=== PATIENT | female | born 1975 | race Caucasian/White ===

== ENCOUNTER 2021-06-07 16:01 | Emergency (ER) | payer MEDICAID, SELFPAY ==
[2021-06-07 16:01] VITALS: BP 161/93; PULSE 108; RESP 24; TEMP 36.3; O2SAT 98; BMI 49.8
[2021-06-07 18:15] VITALS: BP 143/72; PULSE 90; RESP 17; O2SAT 97
--- NOTE | 2021-06-07 18:39 | CT_ITS ---
STUDY: CTA CHEST REASON FOR EXAM: Female, 45 years old. dyspnea RADIATION DOSAGE (If Supplied By Facility): CTDIvol = ( 17.42 ) mGy, DLP = ( 531.84 ) mGycm TECHNIQUE: The examination was performed with the intravenous administration of IV 100mL Isovue-370. Post-processing of the angiographic images was performed, with multiplanar reformation and 3D reconstruction. Individualized dose optimization techniques were used for this CT. COMPARISON: None. FINDINGS: Heart size and pericardium are unremarkable. The aorta is normal in caliber. No aneurysm or dissection. There is no mediastinal mass or adenopathy. There is no hilar or axillary adenopathy. There is no evidence of pulmonary embolus. There is no pleural effusion. Mild diffuse groundglass opacities with a predominantly peripheral distribution. Visualized abdomen is unremarkable. There is no osseous abnormality. CT/CTA Chest W/WO Contrast IMPRESSION: 1. No pulmonary embolism or arterial dissection. 2. Multilobar groundglass opacity suspicious for pneumonia, particularly Covid-19 pneumonia. Electronically Signed: Latasha Araya MD at 19:59 EDT Tel , Service support ,
--- NOTE | 2021-06-07 18:39 | EKG12_ITS ---
Test Reason : DYSRHYTHMIA Blood Pressure : / mmHG Vent. Rate : 078 BPM Atrial Rate : 078 BPM P-R Int : 160 ms QRS Dur : 080 ms QT Int : 354 ms P-R-T Axes : 042 027 044 degrees QTc Int : 403 ms Normal sinus rhythm Normal ECG Confirmed by JOSE RIZZO, ANNY ([id number]), editorial cartoonist CELIA VACA ([id number]) on 06/08/2021 1:50:03 PM Referred By: LESLI Confirmed By:ANNY GARCIA MD
--- NOTE | 2021-06-07 18:40 | EDS_ITS ---
HPI History of Present Illness Chief Complaint: Shortness of Breath Narrative Narrative: 45-year-old female with history of hypertension, diabetes, hyperlipidemia, status post Covid about 4 weeks. She is presenting with intermittent chest burning and epigastric burning. She also admits to shortness of breath with extreme exertion but this is intermittent. She has shortness of breath when she bends over. Patient no longer has any fevers, chills, myalgias. She sent to the ER by her primary care to rule out PE. She has no history of PE. She denies cardiac history but admits to family history of cardiac disease. [facility] Medical History Asthma CPAP (continuous positive airway pressure) dependence Depression Diabetes GERD (gastroesophageal reflux disease) Hypertension On home oxygen therapy Sleep apnea Home Medications albuterol sulfate 2 puff INHALATION Q4H PRN 06/07/21 [History Last Taken Unknown] aspirin 81 mg PO DAILY 06/07/21 [History Last Taken Unknown] compressor, for nebulizer [Pulmo-Aide Compressor] 06/07/21 [History Last Taken Unknown] hydrochlorothiazide 12.5 mg PO DAILY 06/07/21 [History Last Taken Unknown] ipratropium-albuterol 3 ml INHALATION Q4H PRN 06/07/21 [History Last Taken Unknown] lansoprazole 60 mg PO DAILY 06/07/21 [History Last Taken Unknown] lisinopril 40 mg PO DAILY 06/07/21 [History Last Taken Unknown] loratadine [Claritin] 10 mg PO DAILY 06/07/21 [History Last Taken Unknown] norethindrone acetate 15 mg PO DAILY 06/07/21 [History Last Taken Unknown] sertraline 50 mg PO DAILY 06/07/21 [History Last Taken Unknown] triamcinolone acetonide 1 applic TOPICAL DAILY 06/07/21 [History Last Taken Unknown] Allergy/AdvReac Type Severity Reaction Status Date / Time morphine Allergy Other Verified 06/07/21 18:07 Surgical History History of cholecystectomy Social History Smoking Status: Never smoker ROS ROS ED Constitutional Constitutional ED: Denies chills or fever(s) Eyes Eyes: Denies blurry vision or diplopia ENT ENT ED: Denies rhinorrhea or sore throat Cardiovascular Cardiovascular: Reports chest pain and racing heartbeat Respiratory/Chest Respiratory/Chest: Reports cough, dyspnea and dyspnea on exertion Gastrointestinal Gastrointestinal: Reports abdominal pain; Denies nausea or vomiting Genitourinary Genitourinary ED: Denies dysuria or hematuria Musculoskeletal Musculoskeletal: Denies arthralgias or myalgias Integumentary Denies Abrasions or rash Neurologic Neurologic: Denies headache(s) or paresthesias Psychiatric Psychiatric: Denies anxiety or depression EXAM Physical Exam Const Vital Signs: 06/07/21 16:01 06/07/21 18:15 06/07/21 18:48 Temperature 97.4 F L Temperature Source Temporal Pulse Rate 108 H 90 Respiratory Rate 24 H 17 Respiratory Effort Normal Non-Labored Respiratory Depth Normal Respiratory Pattern Normal Blood Pressure 161/93 H 143/72 H Blood Pressure Mean 115 95 Pulse Ox 98 97 98 Oxygen Delivery Method Room Air Room Air Room Air 06/07/21 19:52 06/07/21 20:56 Temperature 97.7 F L Temperature Source Temporal Pulse Rate 91 81 Respiratory Rate 17 18 Respiratory Effort Respiratory Depth Respiratory Pattern Blood Pressure 127/58 H 122/61 H Blood Pressure Mean 81 Pulse Ox 96 98 Oxygen Delivery Method Room Air Positive well nourished General Appearance ED: NAD; Negative for pallor HEENT Reports moist mucous membranes atraumatic Eyes PERRL and EOMs intact bilaterally Resp normal respiratory effort and clear to auscultation bilaterally Cardio regular rate and regular rhythm GI non-tender Palpation: soft Neuro oriented x3 Sensorium / Orientation: alert and oriented to person Psych mental status grossly normal Skin General Skin Exam: Negative for jaundice or pallor Rashes: no rashes MDM MDM MDM Narrative Medical decision making narrative: Patient presenting with continued shortness of breath after having COVID-19 pneumonitis. She states that she is intermittently short of breath. She describes a burning chest pain. CBC and BMP are unremarkable. Troponin is 5. Chest x-ray shows no acute cardiopulmonary process on my interpretation and the radiologist does agree. EKG shows a normal sinus rhythm at 78 bpm without sign of ischemic changes interpreted by myself. Patient had CTA of the chest due to concern for PE status post COVID-19. This does show multilobar groundglass opacities suspicious for COVID-19. There are no pulmonary emboli and there is no dissection present. Patient counseled on findings and I feel she stable to be discharged home as she is already recovered from COVID-19 pneumonitis. Impression: Lcaudio #1 history of COVID-19 pneumonitis 2. Shortness of breath 3. Atypical chest pain Lab Data Labs: Laboratory Results - last 24 hr 06/07/21 06/07/21 18:00 18:00 WBC 9.8 RBC 4.77 Hgb 13.7 Hct 42.5 MCV 89.1 MCH 28.7 MCHC 32.2 RDW Std Deviation 46.0 H RDW Coeff of Zac 14.1 Plt Count 439 MPV 9.8 Immature Gran % (Auto) 2.800 H Neut % (Auto) 63.9 Lymph % (Auto) 20.7 Russell % (Auto) 9.3 Eos % (Auto) 2.4 Baso % (Auto) 0.9 Absolute Neuts (auto) 6.2 Absolute Lymphs (auto) 2.02 Nucleated RBC % 0 Sodium 138 Potassium 4.0 Chloride 108 H Carbon Dioxide 26.0 Anion Gap 4 L BUN 10 Creatinine 0.64 Estim Creat Clear Calc 89.89 Est GFR (MDRD) Af Amer 127 Est GFR (MDRD) Non-Af 105 BUN/Creatinine Ratio 15.6 Glucose 137 H Calcium 9.5 Troponin I High Sens 5 Radiography Diagnostic Testing: Radiology Impression Chest CTA 06/07/21 18:39 IMPRESSION: 1. No pulmonary embolism or arterial dissection. 2. Multilobar groundglass opacity suspicious for pneumonia, particularly Covid-19 pneumonia. Electronically Signed: Latasha Araya MD at 19:59 EDT Tel , Service support , Chest X-Ray 06/07/21 18:42 IMPRESSION: Normal x-ray examination of the chest. Electronically Signed: Latasha Araya MD at 19:24 EDT Tel , Service support , Discharge Plan Triage Chief Complaint: Shortness of Breath ED Provider: Gaston Stanford Dx/Rx/DC Orders Instructions: ED Dyspnea Prescriptions: No Action albuterol sulfate 90 mcg/actuation HFA aerosol inhaler 2 puff INHALATION Q4H PRN (Reason: wheez) RF: 0 hydrochlorothiazide 12.5 mg tablet 12.5 mg PO DAILY RF: 0 ipratropium-albuterol 0.5 mg-3 mg(2.5 mg base)/3 mL solution for nebulization 3 ml inhalation Q4H PRN (Reason: Wheezing) RF: 0 triamcinolone acetonide 0.1 % cream 1 applic TOPICAL DAILY RF: 0 lansoprazole 30 mg capsule,delayed release(DR/EC) 60 mg PO DAILY RF: 0 norethindrone acetate 5 mg tablet 15 mg PO DAILY RF: 0 lisinopril 40 mg tablet 40 mg PO DAILY RF: 0 sertraline 50 mg tablet 50 mg PO DAILY RF: 0 (DME) Pulmo-Aide Compressor Device MISCELLANEOUS RF: 0 aspirin 81 mg Capsule 81 mg PO DAILY RF: 0 loratadine [Claritin] 10 mg Tablet 10 mg PO DAILY RF: 0 Primary Care Provider: Reilly Bales Referrals: Reilly Bales MD [Primary Care Provider] - Disposition Disposition: Home, Self Care Discharge Date/Time: 06/07/21 20:56
--- NOTE | 2021-06-07 18:42 | RAD_ITS ---
STUDY: X-RAY CHEST REASON FOR EXAM: Female, 45 years old. chest pain TECHNIQUE: Single AP portable view of the chest. COMPARISON: None. FINDINGS: The lungs are clear and expanded. There is no demonstrated pleural abnormality. Normal size heart. Normal mediastinum and raheem. Normal visualized pulmonary arteries. Normal visualized aortic arch and descending thoracic aorta. Normal visualized thoracic spine. Normal visualized ribs, clavicles, and shoulders. There is no demonstrated abnormality of the visualized soft tissue structures of the upper abdomen. RAD/Chest 1 View (Portable) IMPRESSION: Normal x-ray examination of the chest. Electronically Signed: Latasha Araya MD at 19:24 EDT Tel , Service support ,
[2021-06-07 18:48] VITALS: O2SAT 98
[2021-06-07 18:51] LABS: Absolute Lymphocyte Count 2.02 X10^3/uL (0.83-4.51); Absolute Neutrophil Count 6.2 X10^3/uL (2.0-7.7); Basophil# 0.09 X10^3/uL; Basophil% 0.9 % (0-1); Eosinophil# 0.23 X10^3/uL; Eosinophils% 2.4 % (0-5); Hematocrit 42.5 % (37-47); Hemoglobin 13.7 g/dL (12.0-15.0); Lymphocyte # 2.02 X10^3/ul (0.83-4.51); Lymphocyte % 20.7 % (19-41); Mean Corp Hgb Conc 32.2 g/dL (32-36); Mean Corpuscular Hgb 28.7 pg (27.0-32.0); Mean Corpuscular Volume 89.1 fL (81-99); Mean Platelet Vol. 9.8 fl (6.2-12.0); Monocyte# 0.91 X10^3/uL; Monocyte% 9.3 % (0-10); NRBC Flagged by Analyzer 0 % (0-5); Neutrophil # 6.24 X10^3/uL (2.7-7.7); Neutrophil % 63.9 % (47-70); Platelet Count 439 K/mm3 (150-450); RBC Distribution Width CV 14.1 % (11.6-14.6); Red Blood Count 4.77 M/mm3 (4.2-5.4); White Blood Count 9.8 K/mm3 (4.4-11.0)
[2021-06-07 19:03] LABS: Anion Gap 4 (5-15); BUN 10 mg/dL (7-18); BUN/Creat Ratio 15.6 RATIO (10-20); Calcium,Total 9.5 mg/dL (8.5-10.1); Chloride 108 mmol/L (98-107); Creatinine, Serum 0.64 mg/dL (0.55-1.02); EST Glomerular Filtration Rate 105 mL/min (>60); Est Glom Filt Rate - Afr Amer 127 mL/min (>60); Estimated Creatinine Clearance 89.89 ml/min; Glucose 137 mg/dL (74-106); Sodium Level 138 mmol/L (136-145); Troponin-I HS 5 pg/mL (3.0-54.0)
[2021-06-07 19:52] VITALS: BP 127/58; PULSE 91; RESP 17; TEMP 36.5; O2SAT 96
[2021-06-07 20:56] VITALS: BP 122/61; PULSE 81; RESP 18; O2SAT 98
== END 2021-06-07 20:56 | disposition home or self-care (01) ==
PROVIDERS: Emergency Provider Student in an Organized Health Care Education/Training Program; PCP Family Medicine
DX: R06.02 Shortness of breath (principal); R07.89 Other chest pain; Z86.16 Personal history of COVID-19; E11.9 Type 2 diabetes mellitus without complications; E78.5 Hyperlipidemia, unspecified; F32.9 Major depressive disorder, single episode, unspecified; G47.30 Sleep apnea, unspecified; I10 Essential (primary) hypertension; J45.909 Unspecified asthma, uncomplicated; K21.9 Gastro-esophageal reflux disease without esophagitis; Z79.3 Long term (current) use of hormonal contraceptives; Z79.82 Long term (current) use of aspirin; Z82.49 Family history of ischemic heart disease and other diseases of the circulatory system
CPT/HCPCS: 71045; 71275; 80048; 84484; 85025; 93005; 99284; Q9967; A4216

== ENCOUNTER → 2021-06-22 12:52 | Outpatient (CLI) | payer MEDICAID, SELFPAY ==
--- NOTE | 2021-06-22 12:56 | ECHOCS_ITS ---
Reason For Study: SOB Procedure This was a 2D Doppler, Color Flow transthoracic echocardiogram. The study was technically difficult. Contrast injection was performed. Exam performed in department. Left Ventricle Normal LV size. Left ventricular systolic function is normal. The estimated ejection fraction is 55 %. No evidence for diastolic dysfunction. No regional wall motion abnormalities noted. Right Ventricle Normal RV size. Normal systolic function. Atria Normal left atrium. Normal right atrium. No doppler evidence for ASD. Mitral Valve There is no mitral annular calcification. Normal mitral valve. Tricuspid Valve Normal tricuspid valve. Trivial tricuspid valve insufficiency. Unable to estimate RV systolic pressure/pulmonary artery pressure due to technically difficult study. Aortic Valve Trisinus/trileaflet aortic valve. Normal aortic valve. Pulmonic Valve The pulmonic valve is not well visualized. Trivial pulmonic valve insufficiency. Great Vessels Normal sized aortic root. Pericardium/Pleural No pericardial effusion. Medication 22 gauge I.V. with prn adaptor inserted into right arm. Diluted definity 3ml given slow IV push to enhance endocardial definition. MMode/2D Measurements & Calculations LVIDd: 4.0 cm IVSd: 1.3 cm Ao root diam: 3.4 cm LVIDs: 2.3 cm LVPWd: 1.2 cm RVDd: 3.0 cm FS: 43.4 % LAV(MOD-bp): 60.1 ml LVAd ap4: 35.5 cm2 SV(MOD-sp4): 71.3 ml LAV(MOD-bp) Indexed: 27.4 ml/m2 LVLd ap4: 8.7 cm LAV(MOD-sp2): 61.9 ml EDV(MOD-sp4): 123.7 ml LAV(MOD-sp4): 56.9 ml EDV(sp4-el): 122.9 ml LVAs ap4: 20.6 cm2 LVLs ap4: 7.1 cm ESV(MOD-sp4): 52.3 ml ESV(sp4-el): 50.5 ml EF(MOD-sp4): 57.7 % EF(sp4-el): 58.9 % SV(sp4-el): 72.4 ml LA A4 area: 19.9 cm2 LA dimension(2D): 3.8 cm RA A4 area: 11.2 cm2 Doppler Measurements & Calculations MV E max anthony: 80.0 cm/sec Lat Peak E' Anthony: 10.4 cm/sec Med Peak E' Anthony: 6.9 cm/sec MV A max anthony: 84.0 cm/sec E/E' lat: 7.7 E/E' med: 11.6 MV E/A: 0.95 Ao V2 max: 148.6 cm/sec LV V1 max: 130.8 cm/sec PA V2 max: 108.6 cm/sec Ao max P.8 mmHg LV V1 max P.8 mmHg ECHO/Echo Complete W/ Contrast Interpretation Summary The study was technically difficult. Contrast injection was performed. Left ventricular systolic function is normal. The estimated ejection fraction is 55 %. Trivial tricuspid valve insufficiency. Trivial pulmonic valve insufficiency. Unable to estimate RV systolic pressure/pulmonary artery pressure due to techni richard difficult study. No evidence for diastolic dysfunction. Ordering Physician: HUEY HILL Referring Physician: Laxmi Huitron Performed By: Vilma Hart RDCS
== END ==
PROVIDERS: PCP Physician Assistant
DX: R06.02 Shortness of breath (principal)
CPT/HCPCS: 93306; Q9957; A4216; C8929; J3490

== ENCOUNTER → 2022-11-22 | Outpatient (CLI) | payer OTHER, SELFPAY ==
--- NOTE | 2022-11-22 13:20 | BI_ITS ---
MAMMOGRAPHY - BILATERAL SCREENING REASON FOR EXAM: Female, 47 years old. Routine annual screening examination. PERTINENT HISTORY: Aunt with breast cancer. Left excisional chest resection. TECHNIQUE: Digital bilateral breast gonzalo (3D mammographic acquisition) in the CC and MLO projections. 2-D mediolateral oblique (MLO) and craniocaudad (CC) views of both breasts were obtained. CAD: Full Field Digital Mammography with Computer Added Detection was performed. COMPARISON: No comparison mammograms available at this time. If any prior films become available, an addendum to this report can be generated. FINDINGS: Breast Composition: There are scattered areas of fibroglandular density. There are no dominant masses or suspicious calcifications. Small benign-appearing bilateral axillary lymph nodes. No other significant abnormalities are identified. BI/SCRN MAMM (CAD)W/GONZALO BILAT IMPRESSION: Negative screening mammogram. Yearly followup mammogram recommended. (A) ASSESSMENT CATEGORY: BIRADS Category 2: Benign. A letter regarding these results will be sent to the patient by the facility within 30 days. Approximately 10% of breast cancers are not detected by mammography. A normal mammogram should not delay biopsy of a clinically suspicious abnormality. [id number] Electronically Signed: Be Lozano MD at 17:28 EST ,
== END | disposition home or self-care (01) ==
LOC: OPBI 13:07
PROVIDERS: PCP Physician Assistant; Visit Provider Internal Medicine Hematology & Oncology
DX: Z12.31 Encounter for screening mammogram for malignant neoplasm of breast (principal)
CPT/HCPCS: 77063; 77067

== ENCOUNTER → 2022-11-29 | Outpatient (CLI) | payer OTHER, SELFPAY ==
--- NOTE | 2022-11-29 11:59 | US_ITS ---
STUDY: ULTRASOUND OF THE FEMALE PELVIS - COMPLETE REASON FOR EXAM: Female, 47 years old. Menorrhagia LMP: Unknown. TECHNIQUE: Transabdominal and Transvaginal TECHNICAL QUALITY: Adequate. COMPARISON: None. FINDINGS: The uterus is anteverted and is in a midline position. The uterus measures 12.5 x 7.6 x 6.5 cm. Normal uterine cervix. The endometrium measures 42 mm in thickness, and is hyperechoic. There is no demonstrated endometrial mass. There is no demonstrated myometrial mass. I.U.D. - The patient does not have an I.U.D. The right ovary is visualized. The right ovary measures 4.7 x 5.7 x 4.4 cm. There is a simple 4.3 x 3.4 x 3.8 cm cyst. . There is normal arterial and normal venous vascularity. The left ovary is visualized. The left ovary measures 3.2 x 3.2 x 2.2 cm. There is no left ovarian cyst or ovarian mass. There is no visualized left adnexal mass or complex lesion. There is normal arterial and normal venous vascularity. There is no fluid in the cul-de-sac. The bladder is sonographically normal with estimated capacity of 400 mL US/Pelvic (Non ) IMPRESSION: Enlarged uterus with diffuse endometrial thickening at 42 mm, numerous small cysts are present within the endometrium suggesting endometrial hyperplasia. Since the patient is abnormally bleeding, close follow-up ultrasound is recommended to assure resolution of the endometrial thickening. Simple right ovarian cyst, however, given its size and patient''s age, this should also undergo follow-up ultrasound to assure resolution Electronically Signed: Laron He MD at 13:02 EDT ,
== END | disposition home or self-care (01) ==
LOC: US 11:58
PROVIDERS: PCP Physician Assistant; Visit Provider Registered Nurse
DX: N92.0 Excessive and frequent menstruation with regular cycle (principal)
CPT/HCPCS: 76830; 76856

== ENCOUNTER → 2022-12-28 | Outpatient (CLI) | payer OTHER, SELFPAY ==
--- NOTE | 2022-12-27 10:35 | EMB_PTH ---
PATIENT: SARBJIT LAST LOC: [facility] #:[id number] AGE/SX: 47/F ROOM: RE12/28/[address]: VIKA Son : 1975 BED: DIS: 12/28/2022 SPEC #: [id number] RECD: 12/28/22 13:21 STATUS: ANGEL REAna #: [id number] JENNIFER: 12/27/22 10:[address]: Radha Payton NP DEPT: SURGICAL PATHOLOGY RECD BY: Josephine Starr ENTERED: 12/28/22 14:01 SP TYPE: ENDOM BX/C FAVIAN DR: KODAK Anderson Tissues: Endometrium, NOS Procedures: Surgery Specimen Level IV HEADER OPERATION: Endometrial biopsy PRE-OP DIAGNOSIS: Abnormal uterine bleeding, on progesterone TISSUE SUBMITTED: Endometrial tissue MICROSCOPIC DIAGNOSIS Endometrium, biopsy: 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 AM:evelia 12/29/2022 MICROSCOPIC DESCRIPTION Slides are reviewed. GROSS DESCRIPTION Received is one container labeled with the patient's name and not further designated. The specimen consists of multiple fragments of hemorrhagic soft tissue that in aggregate measure 3.0 x 2.5 x 0.3 cm. The specimen is totally submitted in one cassette. / SJ:evelia 12/28/2022 TC:5 CPT: 59470
== END | disposition home or self-care (01) ==
LOC: LABSPEC 13:25
PROVIDERS: PCP Physician Assistant; Referring Provider Nurse Practitioner Women's Health; Visit Provider Nurse Practitioner Women's Health
DX: N93.9 Abnormal uterine and vaginal bleeding, unspecified (principal); Z79.890 Hormone replacement therapy
CPT/HCPCS: 88305

== ENCOUNTER 2023-03-03 05:26 | Day surgery (SDC) | payer OTHER, SELFPAY ==
--- NOTE | 2023-02-28 10:07 | EKG12_ITS ---
Test Reason : PRE-OP Blood Pressure : / mmHG Vent. Rate : 067 BPM Atrial Rate : 067 BPM P-R Int : 200 ms QRS Dur : 070 ms QT Int : 374 ms P-R-T Axes : 000 021 031 degrees QTc Int : 395 ms Normal sinus rhythm Normal ECG Confirmed by JOSE RIZZO, ANNY ([id number]), editor school photograph JUN IBARRA ([id number]) on 03/01/2023 11:16:18 AM Referred By: Lisha Abdi Confirmed By:ANNY GARCIA MD
[2023-02-28 10:39] LABS: Hematocrit 47.2 % (37-47); Hemoglobin 15.5 g/dL (12.0-15.0); Mean Corp Hgb Conc 32.8 g/dL (32-36); Mean Corpuscular Hgb 28.7 pg (27.0-32.0); Mean Corpuscular Volume 87.2 fL (81-99); Mean Platelet Vol. 9.6 fl (6.2-12.0); Platelet Count 385 K/mm3 (150-450); RBC Distribution Width CV 13.7 % (11.6-14.6); RBC Distribution Width SD 43.6 fl (35.1-43.9); Red Blood Count 5.41 M/mm3 (4.2-5.4); White Blood Count 10.2 K/mm3 (4.4-11.0)
[2023-02-28 11:17] LABS: AST(SGOT) 20 U/L (15-37); Alanine Aminotransfer ALT/SGPT 46 U/L (13-56); Albumin, Serum 3.7 g/dL (3.2-5.0); Alkaline Phosphatase 52 U/L (45-117); Anion Gap 4 (5-15); BUN 8 mg/dL (7-18); BUN/Creat Ratio 10.9 RATIO (10-20); Chloride 106 mmol/L (98-107); Creatinine, Serum 0.73 mg/dL (0.55-1.02); EST Glomerular Filtration Rate 89 mL/min (>60); Est Glom Filt Rate - Afr Amer 108 mL/min (>60); Globulin 3.7 g/dL (2.2-4.2); Glucose 117 mg/dL (74-106); Magnesium 2.1 mg/dL (1.6-2.6); Potassium 4.4 mmol/L (3.5-5.1); Protein, Total 7.4 g/dL (6.4-8.2); Sodium Level 137 mmol/L (136-145)
[2023-02-28 11:49] LABS: Hemoglobin A1c 6.2 % (3.8-5.6)
[2023-03-03] VITALS (10 sets, daily range): BP systolic 123–150; BP diastolic 63–94; PULSE 72–89; RESP 16–18; TEMP 36.1–36.7; O2SAT 95–100; BMI 48.7
[2023-03-03] MEDS: Magnesium 1 GM over 15 mins IV (06:23)
[2023-03-03] MEDS: Phenazopyridine 95 MG Tablet 190 MG PO (06:23)
[2023-03-03] MEDS: Celecoxib 200 MG Capsule 400 MG PO (06:23)
[2023-03-03] MEDS: dexAMETHasone 4 MG/ML Vial 8 MG IV (06:23)
[2023-03-03] MEDS: Lactated Ringers 1,000 ML 40 ML IV ×2 (06:23→10:01)
[2023-03-03] MEDS: Acetaminophen 500 MG Tablet 1000 MG PO (06:23)
[2023-03-03] MEDS: Gabapentin 600 MG Tablet PO (06:23)
--- NOTE | 2023-03-03 07:00 | DCINST_ITS ---
Discharge Instructions Diet Discharge Diet: No restrictions Activity Discharge Activity: May Not Drive and May Shower May resume sexual activity in: 8 weeks Weight Bearing Status: Full weight bearing Lifting Restrictions: 10 pounds Dressing / Incision Call your doctor if your incision/area has: Continuous Slow Oozing, Sudden Increased Bleeding, Increased Pain/ Swelling, Increased Redness and Foul Smelling Discharge Call your doctor if you observe: Fever of 101 or Higher, Using more than 1 pad per hour, Shortness of breath, Chest pain and Uncontrolled pain Suture Line Care: Avoid Pulling/Pushing and Avoid Pinching/Bending Remove Dressing in: 1 week (if present) Cleanse incision/area with: Soap & Water and Keep Dressing Clean & Dry Follow Up Care Please Follow Up With: Lisha Abdi DO When: Call to make an appointment with your doctor for a postop visit in 2 and 6 weeks Test Results: Test results from this visit will be discussed in further detail at your follow- up appointment, if applicable. Discharge Plan Admission Primary Reason for Your Visit: hysterectomy and bladder sling Attending Provider: Lisha Abdi Primary Care Provider: Laxmi Huitron Consulting Providers: Geovanna Leary Discharge Orders/Prescriptions Prescriptions: New ibuprofen 800 mg tablet 800 mg PO Q8H PRN (Reason: pain) Qty: 30 0RF oxycodone-acetaminophen [Percocet] 5-325 mg tablet 1 tab PO Q4H PRN (Reason: pain) 7 Days Qty: 30 0RF Rx Instructions: 1-2 tabs q 4 hrs as needed for pain Continued simvastatin 20 mg tablet 20 mg PO DAILY magnesium 250 mg tablet 250 mg PO DAILY Probiotic Gold Acidophilus 1 billion cell capsule 10 mg PO DAILY GenTeal Tears Severe Gel Drops 0.4-0.3 % drops,gel 1 drp ophthalmic (eye) Q4H PRN (Reason: Dry Eyes) Breztri Aerosphere 160-9-4.8 mcg/actuation HFA aerosol inhaler 2 inh inhalation BID esomeprazole magnesium 40 mg capsule,delayed release(DR/EC) 40 mg PO QAM Qty: 90 3RF albuterol sulfate 90 mcg/actuation HFA aerosol inhaler 2 puff INHALATION Q4H PRN (Reason: wheez) hydrochlorothiazide 12.5 mg tablet 12.5 mg PO DAILY lisinopril 40 mg tablet 40 mg PO DAILY sertraline 50 mg tablet 50 mg PO DAILY (DME) Pulmo-Aide Compressor Device MISCELLANEOUS Label Comments: USE DIRECTED Discontinued norethindrone acetate 5 mg tablet 30 mg PO DAILY norethindrone acetate 5 mg tablet 15 mg PO QHS Other Ambulatory Orders: 12 Lead EKG (Routine) Timeframe: 20230228 Location: None Selected Ordered By: Dr. Lisha Abdi Referrals / Follow Up: Laxmi Huitron PA [Primary Care Provider] - Disposition Disposition (needs filled in before D/C Order can be placed): Home, Self Care
--- NOTE | 2023-03-03 07:00 | HP.PCM_ITS ---
History and Physical Date of Admission: 03/03/23 Intake Vital Signs ? 02/15/2315:39 02/15/2315:39 Height 5 ft 3 in 5 ft 3 in Weight: 278 lb 4 oz ? BMI 49.3 ? BP 127/76 H ? Intake Visit Reasons:?TRHBS Echo Vascular Technologist Required: No Is patient in pain?: No Allergies morphine Allergy (Verified 02/15/23 15:38) Other Medications albuterol sulfate 90 mcg/actuation aerosol inhaler 2 puff inhalation Q4H PRN wheez 06/07/21 [History Confirmed 02/15/23] compressor, for nebulizer (Pulmo-Aide Compressor)? 06/07/21 [History Confirmed 02/15/23] hydrochlorothiazide 12.5 mg tablet 12.5 mg PO DAILY 06/07/21 [History Confirmed 02/15/23] lisinopril 40 mg tablet 40 mg PO DAILY 06/07/21 [History Confirmed 02/15/23] norethindrone acetate 5 mg tablet 15 mg PO DAILY 06/07/21 [History Confirmed 02/15/23] sertraline 50 mg tablet 50 mg PO DAILY 06/07/21 [History Confirmed 02/15/23] simvastatin 20 mg tablet 20 mg PO DAILY 11/11/22 [History Confirmed 02/15/23] Lactobacillus acidophilus 1 billion cell capsule (Probiotic Gold Acidophilus) 10 mg PO DAILY 11/14/22 [History Confirmed 02/15/23] budesonide 160 mcg-glycopyr 9 mcg-formot 4.8 mcg/actuation HFA inhaler (Breztri Aerosphere) 2 inh inhalation BID 11/14/22 [History Confirmed 02/15/23] magnesium 250 mg tablet 250 mg PO DAILY 11/14/22 [History Confirmed 02/15/23] peg 400-propylene glycol 0.4 %-0.3 % eye gel drops (GenTeal Tears Severe Gel Drops) 1 drp ophthalmic (eye) Q4H PRN 11/14/22 [History Confirmed 02/15/23] norethindrone acetate 5 mg tablet 15 mg PO DAILY #90 tabs 11/22/22 [Rx Confirmed 02/15/23] esomeprazole magnesium 40 mg capsule,delayed release 40 mg PO QAM #90 caps 02/03/23 [Rx Confirmed 02/15/23] Post menopausal: No Patient : No : No PFSH Medical History? Abnormal uterine bleeding Asthma CPAP (continuous positive airway pressure) dependence Depression Diabetes GERD (gastroesophageal reflux disease) Hypertension On home oxygen therapy Sarcoma Sleep apnea Thrombocytosis Torn meniscus Surgical History? History of cancer surgery History of cholecystectomy History of surgery on wrist History of tubal ligation Barnum teeth extracted Family History? Mother Lung cancer Diabetes Intestinal gangrene CVA (cerebral vascular accident)Aunt Bladder cancer ?? ? maternalAunt Breast cancer ?? ? maternalUncle Liver cancer ?? ? maternal Social History? household members:? spouse Smoking Status:? Never smoker alcohol intake:? never substance use type:? does not use diet:? diabetic what type of physical activity do you participate in:? walking frequency:? 3-4 times per week HPI TRHBS Details: SARBJIT LAST is a 47 year old who presents for preop exam. She has a 12 cm uterus with thick heterogenous lining. EMB showed benign hyperplasia consistent with exogenous hormone affect. She is a (3 vaginal deliveries). She is experiencing heavy menses with clots that does not stop until takes 3 control pills a day. She also has the complaint of urinary incontinence with laughing, lifting, coughing, sneezing and has been seeing Dr. Leary. The plan is for a hysterectomy combo case with Dr. Leary to include a sling procedure.? History GravidaA ? Elective abortions ? Hx Para ? ? ? 4 ? Spontaneous abortions ? Hx # Term Pregnancies ? ? ? 4 ? Ectopic pregnancies ? Hx # Pregnancies ? Multiple births ? # of living children ? ? ? 4 ROS Const ROS Unobtainable: All systems reviewed & are unremarkable except as noted in H Resp Resp: Reports system reviewed and no additional complaints, except as documented; Denies cough GI GI: Reports as per HPI Psych Psych: Reports system reviewed and no additional complaints, except as documented Exam Const General: cooperative, healthy appearing, comfortable and no acute distress Resp Effort & Inspection: normal respiratory effort Skin General: no rashes or lesions noted Psych Appearance: grossly normal Speech and Movement: speech and movement normal Coding Level of Care Code Off vis,est,level 4 Diagnoses Enlarged uterus? N85.2 Thickened endometrium? R93.89 Abnormal uterine bleeding? N93.9 Climacteric? N95.1 Mixed stress and urge incontinence? N39.46 Menorrhagia? N92.0 Sleep apnea? G47.30 Hypertension? I10 GERD (gastroesophageal reflux disease)? K21.9 Diabetes? E11.9 Depression? F32.9 Asthma? J45.909 Thrombocytosis? D75.839 Assessment and Plan Assessment and Plan (1) Enlarged uterus: ?Status:?Acute (2) Thickened endometrium: ?Status:?Acute ?Comment: 42 mm. EMB pending (3) Abnormal uterine bleeding: ?Status:?Acute ?Comment: 01/05/21 EMB showed inactive endometrium with decidual like stromal changes consistat exogenous hormonal effects (4) Climacteric: ?Status:?Acute (5) Mixed stress and urge incontinence: ?Status:?Acute ?Comment: is not interested in PT/medication management. (6) Menorrhagia: ?Status:?Acute ?Comment: stable, amenorrhoeic on norethindrone. (7) Sleep apnea: ?Status:?Acute (8) Hypertension: ?Status:?Chronic (9) GERD (gastroesophageal reflux disease): ?Status:?Chronic (10) Diabetes: ?Status:?Acute (11) Depression: ?Status:?Acute (12) Asthma: ?Status:?Acute (13) Thrombocytosis: ?Status:?Chronic Plan After discussing the patient's diagnosis and treatment plan options, patient wishes to proceed with surgical management.? I have discussed with the patient the risks, benefits, and alternatives of the procedure which include but are not limited to risks of anesthesia, bleeding, infection, possible damage to bowel, bladder, or surrounding vasculature which could lead to additional surgery to evaluate any complications.? Patient agrees to procedure and wishes to proceed.? ACOG/uptodate references given for additional information regarding procedure.? plan for robotic hyst and combo sling with Dr. Leary. medication list reviewed
--- NOTE | 2023-03-03 07:30 | HYST_PTH ---
PATIENT: SARBJIT LAST LOC: [facility] [place] U[place][id number] AGE/SX: 47/F ROOM: RE03/03/[address]: Dr. Lisha Abdi DO : 1975 BED: DIS: 03/03/2023 SPEC #: [id number] RECD: 03/03/23 12:50 STATUS: ANGEL REAna #: [id number] JENNIFER: 03/03/23 07:[address]: Lisha Abdi DEPT: SURGICAL PATHOLOGY RECD BY: Josephine Starr ENTERED: 03/03/23 13:44 SP TYPE: HYSTERECT OTHR DR: MD Laxmi Mcneill PA Tissues: Uterus, NOS Procedures: Surgery Specimen Level V HEADER OPERATION: Lap robotic hysterectomy, bilateral salpingectomy PRE-OP DIAGNOSIS: Enlarged uterus, thickened endometrium, abnormal uterine bleeding, climacteric, mixed stress and urge incontinence, menorrhagia TISSUE SUBMITTED: Uterus and bilateral fallopian tubes MICROSCOPIC DIAGNOSIS Uterus, hysterectomy: Cervix ? nabothian cysts and mild chronic inflammation. Endometrium ? consistent with exogenous hormonal effect with inactive glands. Myometrium ? extensive adenomyosis and leiomyomas. Right fallopian tube ? mild chronic inflammation and benign paratubal cyst with dystrophic microcalcifications. Left fallopian tube ? hydrosalpinx. AM:evelia 03/06/2023 MICROSCOPIC DESCRIPTION Slides are reviewed. GROSS DESCRIPTION Received in fixative is one container labeled with the patient's name and designated uterus and bilateral fallopian tubes. The specimen consists of a hysterectomy specimen consisting of uterus with cervix and attached bilateral fallopian tubes. The uterus with cervix weighs 380 gm and measures 15.0 x 10.0 x 8.0 cm. The serosal surface is abbott, glistening. The ectocervical mucosa is unremarkable. The external os is oval and patulous in contour. The endocervical canal measures 4.0 cm in length and the endocervical mucosa is abbott, glistening and unremarkable. The triangular endometrial cavity measures 7.0 cm in length and up to 4.0 cm in width. The endometrium is abbott, glistening without any mass lesion and measures 0.1 cm in thickness. Sections of the uterine wall reveal two nodular masses measuring 1.5 and 0.5 cm in greatest dimension. The uterine wall is diffusely thickened. The anterior uterine wall measures 5.0 cm in thickness and posterior uterine wall measures up to 3.0 cm in thickness. Sections of the uterine wall also reveal diffusely trabeculated cut surfaces suspicious for adenomyosis. The right fallopian tube measures 5.0 cm in length and 0.6 cm in diameter. The fimbrial end is identified. Sections of right fallopian tube reveal pin-point lumen filled with a small amount of blood. Sections reveal unremarkable cut surfaces. The left fallopian tube is similar appearance to right and measures 6.5 cm in length and 0.8 cm in diameter. Sections of the left fallopian tube reveal dilated lumen filled with liquified blood and the lumen measures up to 0.5 cm in diameter. Fast Food Restaurant Manager sections are submitted in nine cassettes as follows: 1 - anterior cervix, 2 - posterior cervix, 3 & 4 - anterior uterine wall, 5 & 6 - posterior uterine wall, 7??nodular masses, 8 - right fallopian tube, 9 - left fallopian tube. / SJ:evelia 03/03/2023 TC:1 CPT: 77394
[2023-03-03 07:49] LABS: Bedside Glucose 110 mg/dL (74-106)
--- NOTE | 2023-03-03 08:47 | PCM.OPRPT ---
Report of Operation Date of Procedure: 03/03/23 Pre-Operative Diagnosis: Stress urinary incontinence Post-Operative Diagnosis: Same Surgery/Procedure Performed:: Mid urethral sling insertion, cystoscopy with bilateral ureteral catheterization Surgeon: Geovanna Leary Type of Anesthesia: General Specimen's removed: None Estimated Blood Loss (mL): 5 cc Description of Procedure: The patient is a 47-year-old female presenting for a hysterectomy and having issues with stress urinary incontinence desiring surgical intervention. Informed consent was obtained. The patient was taken to the operating room and placed on the operating room table. She was appropriately secured and padded. Anesthesia monitored the head, neck, airway, IV access and vital signs throughout the case. Once anesthesia was appropriately administered the patient was positioned, prepped and draped in usual sterile fashion and a Palmer catheter was inserted to straight drain. Dr. Martinez completed her portion of the procedure and turned the case over to hi. The Palmer catheter was removed. The cystoscope was inserted through the urethra under direct visualization. The bladder was visualized in its entirety along with the urethra and there was no evidence of foreign body, laceration, mass or other mucosal abnormality. A 5 American whistle-tip catheter was then used to gently cannulate the patient's left ureteral orifice and it was advanced to 20 cm without evidence of obstruction or injury. This was also repeated on the patient's right side with same findings. The patient's cystoscope was removed and the Palmer catheter was replaced. The robot was then undocked. The patient was repositioned into exaggerated dorsolithotomy and Trendelenburg position. The mid urethra was identified and injected submucosally with vasopressin for hydrostatic dissection and hemostatic control. A midline incision was made approximately 1.5 cm in length. Sharp and blunt dissection was performed on either side of the urethra with care being taken to avoid entrance into the urethra itself or the vaginal mucosa. At this time using the trocars provided, the Altis mid urethral sling was inserted into the transobturator complexes bilaterally. It was positioned using the tensioning suture and lay flat against the urethra. The tensioning suture was then cut and the incision was closed using running interlocking 2-0 Vicryl suture. The Palmer catheter was removed and the cystoscope was inserted through the urethra under direct visualization into the urinary bladder. There is no evidence of mesh foreign body, entrance into the urinary bladder with the sling. The urethra had good coaptation. At this time the cystoscope was removed. The patient was then awakened and taken to the recovery room in good condition. There were no complications during this procedure. Grafts/Implants Used: Altis mid urethral sling Complications None Admit VTE Documentation VTE Present on Admission: Yes VTE Mechan Device Prophylaxis: SCD's
--- NOTE | 2023-03-03 08:51 | DCINST_ITS ---
Discharge Instructions Diet Discharge Diet: No restrictions Activity May resume sexual activity in: 8 weeks Weight Bearing Status: Full weight bearing Additional Activity Instructions:: No lifting over 5 pounds, no exercise, no s trenuous activity, no sexual activity, no vacuuming, no swimming, no tub bathing, no hot tubs Dressing / Incision Call your doctor if your incision/area has: Continuous Slow Oozing, Sudden Increased Bleeding, Increased Pain/ Swelling, Increased Redness and Foul Smelling Discharge Call your doctor if you observe: Fever of 101 or Higher, Inability to urinate, Inability to have a bowel movement, Using more than 1 pad per hour, Shortness of breath, Chest pain and Uncontrolled pain Suture Line Care: Avoid Pulling/Pushing and Avoid Pinching/Bending Cleanse incision/area with: Soap & Water and Keep Dressing Clean & Dry Follow Up Care Please Follow Up With: Lisha Abdi DO When: Dr. Leary, call office for appt Test Results: Test results from this visit will be discussed in further detail at your follow- up appointment, if applicable. Discharge Plan Admission Primary Reason for Your Visit: hysterectomy and bladder sling Attending Provider: Lisha Abdi Primary Care Provider: Laxmi Huitron Consulting Providers: Geovanna Leary Discharge Orders/Prescriptions Prescriptions: New ibuprofen 800 mg tablet 800 mg PO Q8H PRN (Reason: pain) Qty: 30 0RF oxycodone-acetaminophen [Percocet] 5-325 mg tablet 1 tab PO Q4H PRN (Reason: pain) 7 Days Qty: 30 0RF Rx Instructions: 1-2 tabs q 4 hrs as needed for pain cephalexin [cephalexin] 500 mg capsule 500 mg PO Q12 3 Days Qty: 6 0RF Continued simvastatin 20 mg tablet 20 mg PO DAILY magnesium 250 mg tablet 250 mg PO DAILY Probiotic Gold Acidophilus 1 billion cell capsule 10 mg PO DAILY GenTeal Tears Severe Gel Drops 0.4-0.3 % drops,gel 1 drp ophthalmic (eye) Q4H PRN (Reason: Dry Eyes) Breztri Aerosphere 160-9-4.8 mcg/actuation HFA aerosol inhaler 2 inh inhalation BID esomeprazole magnesium 40 mg capsule,delayed release(DR/EC) 40 mg PO QAM Qty: 90 3RF albuterol sulfate 90 mcg/actuation HFA aerosol inhaler 2 puff INHALATION Q4H PRN (Reason: wheez) hydrochlorothiazide 12.5 mg tablet 12.5 mg PO DAILY lisinopril 40 mg tablet 40 mg PO DAILY sertraline 50 mg tablet 50 mg PO DAILY (DME) Pulmo-Aide Compressor Device MISCELLANEOUS Label Comments: USE DIRECTED Discontinued norethindrone acetate 5 mg tablet 30 mg PO DAILY norethindrone acetate 5 mg tablet 15 mg PO QHS Other Ambulatory Orders: 12 Lead EKG (Routine) Timeframe: 20230228 Location: None Selected Ordered By: Dr. Lisha Abdi Referrals / Follow Up: Laxmi Huitron, PA [Primary Care Provider] - Disposition Disposition (needs filled in before D/C Order can be placed): Home, Self Care
[2023-03-03] MEDS: Bupivacaine 0.25% 30 ML Vial (10:10)
[2023-03-03] MEDS: Lidocaine 1%/Epi 1:100 (30ml) 30 ML VIAL (10:15)
[2023-03-03] MEDS: Ondansetron 4 MG/2 ML Vial IV (10:17)
--- NOTE | 2023-03-03 10:44 | OP.PCM_ITS ---
Problems Associated Problem List Diagnoses (1) Menorrhagia: (2) Mixed stress and urge incontinence: (3) Thickened endometrium: (4) Enlarged uterus: (5) Abnormal uterine bleeding: Report of Operation Date of Procedure: 03/03/23 Pre-Operative Diagnosis: 47 y/o enlarged uterus, menorrhagia, stress incontinence and morbid obesity Post-Operative Diagnosis: 47 y/o enlarged uterus, menorrhagia, stress incontinence and morbid obesity Surgery/Procedure Performed:: total robotic hysterectomy, bilateral salpingectomy Description of Surgical Findings:: enlarged uterus, right ovarian simple cyst Surgeon: Lisha Abdi photography professor: Lorin Barnes Type of Anesthesia: General Specimen's removed: uterus, cervix, fallopian tubes Estimated Blood Loss (mL): 100cc Description of Procedure: Reason for surgery: This is a 47-year-old G3, P3 who presented to my office with history of heavy menses and and an elarged uterus. She is morbidly obese and also has stress urinary incontinence the planned procedure is for a robotic hysterectomy and after the hysterectomy a midurethral sling procedure and cystoscopy with Dr. Leary. the risks benefits and alternatives were discussed with the patient the patient had a clear understanding of the procedure and a consent form was signed. Procedure: The patient was placed in the dorsal low lithotomy position and prepped and draped in the normal sterile fashion both abdominally and in the perineum. Her legs were placed in stirrups a Palmer catheter was inserted into the urethra without difficulty. A weighted speculum was placed in the vagina and a single- tooth tenaculum was used to grasp the anterior lip of the cervix. An advincula uterine manipulator was inserted through the cervix without complication. It was then tied into place at the 2 and 10:00 locations on the cervix. Gloves were changed and attention was turned towards the abdomen. Approximately 23 cm above the pubic symphysis in the midline, and after Marcaine injection, a 8 mm incision was made. An 8 mm trocar was inserted through the laparoscope, then inserted into the abdomen under direct visualization using the laparoscope. Good abdominal placement was noted and no complications were appreciated. An air seal device was utilized to create pneumoperitoneum. At 12 cm lateral to the midline on the left and right sides 8 mm accessory ports were placed. Next a left upper quadrant 8 mm litigation legal assistant port site was placed. The patient was placed in steep Trendelenburg position. The robot was docked. The hysterectomy was initiated first by taking down the round ligament on each side using the vessel sealer device. THe fallopian tubes were grasped with the prograsp and the underlying mesosalpinx cauterized and cute to the level of the uterus. The broad ligament was then and taken down using the vessel sealer device. Next the bladder flap was taken down without complication. This was done using monopolar cautery to the level of the cervical vaginal junction. After the bladder flap was created, uterine vessels were then isolated and cauterized using the vessel sealer device and EndoShears. At this point the uterine vessels were taken down further starting from the ascending branch, dissecting along the edges of the cervix to the level of the cervical vaginal junction with hemostasis appreciated. The cervical vaginal junction was then using monopolar cautery in a circumferential pattern across the superior aspect of the cervix. The specimen was delivered through the vagina and sent to pathology. The remaining vaginal cuff was then closed using a V lock suture. This was performed in a running technique. Excellent hemostasis was obtained and good closure was noted. Irrigation was then performed. All operative sites were noted to be hemostatic. Dr. Leary performed A cystoscopy was performed with a 70 degree cystoscope through the urethra into the bladder without complication. The bladder was instilled with approximately 250 cc of normal saline. Intraoperative images were made. Ureteral orifices and jets were identified and whistle tips were inserted into the ureteres to 10 cm and normal patency of the ureters were identified. No suture material was appreciated in the bladder. The bladder was then drained and cystoscope was removed. The abdominal cavity was again examined using the laparoscope after the robot was undocked. All operative sites were noted to be hemostatic with the exception of one area of oozing on the left side of the cuff incision. Using a 2-0 vicryl, a figure of 8 sutrue was placed and hemostasis was achieved. Fibrillar was also placed over the suture to ensure hemostasis. The trochars were removed under direct visualization without complication and pneumoperitoneum was reduced. At this point the skin was then closed using 4-0 Monocryl subcuticular stitch and sealed with surgical glue. The patient tolerated the procedure well sponge lap and needle counts were correct x2 the patient was taken to the recovery room in stable condition. Complications none Admit VTE Documentation VTE Present on Admission: Yes VTE Mechan Device Prophylaxis: SCD's VTE Pharm Prophylaxis ordered?: No Multi Select Codes Urinary/Genital Urinary/Genital CPT Codes: 92227 TLH+BS/O >250gr uterus
[2023-03-03 10:55] LABS: Bedside Glucose 221 mg/dL (74-106)
[2023-03-03] MEDS: Insulin Lispro 100 UNIT/ML INSULN.PEN SC (11:13)
[2023-03-03] MEDS: Lactated Ringers 1,000 ML 100 ML IV (13:12)
== END 2023-03-03 14:53 | disposition home or self-care (01) ==
LOC: SDC 05:26 → AC 05:27
PROVIDERS: Urology; PCP Physician Assistant; Referring Provider Obstetrics & Gynecology; Visit Provider Obstetrics & Gynecology
PROC: 0UT90ZZ Resection of Uterus, Open Approach (ICD-10-PCS; principal; 2023-03-03 07:10)
PROC: 0TJB8ZZ Inspection of Bladder, Via Natural or Artificial Opening Endoscopic (ICD-10-PCS; CPT 57288; 2023-03-03 07:10)
DX: N92.0 Excessive and frequent menstruation with regular cycle (principal); E66.01 Morbid (severe) obesity due to excess calories; Z68.42 Body mass index [BMI] 45.0-49.9, adult; E11.9 Type 2 diabetes mellitus without complications; J45.909 Unspecified asthma, uncomplicated; I10 Essential (primary) hypertension; N93.9 Abnormal uterine and vaginal bleeding, unspecified; N85.2 Hypertrophy of uterus; G47.30 Sleep apnea, unspecified; N39.46 Mixed incontinence; F32.9 Major depressive disorder, single episode, unspecified; K21.9 Gastro-esophageal reflux disease without esophagitis; N32.81 Overactive bladder
CPT/HCPCS: 57288; 58573; 00860; 36415; 80053; 82962; 83036; 83735; 85027; 86850; 86900; 86901; 88307; 93005; J7120; J2405; J3475

== ENCOUNTER 2023-04-19 08:20 | Day surgery (SDC) | payer OTHER, SELFPAY ==
[2023-04-19] VITALS (7 sets, daily range): BP systolic 99–125; BP diastolic 48–67; PULSE 59–67; RESP 16; TEMP 36.2–36.5; O2SAT 95–100; BMI 48.4
[2023-04-19] MEDS: Lactated Ringers 1,000 ML 15 ML IV (08:57)
[2023-04-19 09:23] LABS: Bedside Glucose 111 mg/dL (74-106)
--- NOTE | 2023-04-19 09:45 | IMM_PTH ---
PATIENT: SARBJIT LAST LOC: [facility] U#:[id number] AGE/SX: 47/F ROOM: RE04/19/[address]: Dr. Jose Delvalle DO : 1975 BED: DIS: 04/19/2023 SPEC #: [id number] RECD: 04/19/23 13:27 STATUS: ANGEL REAna #: [id number] JENNIFER: 04/19/23 09:[address]: Jose Delvalle DEPT: IMMUNOHISTOCHEMISTRY RECD BY: Roseanne Lujan ENTERED: 04/19/23 13:27 SP TYPE: IMMUNO OTHR DR: KODAK Anderson Tissues: B - Stomach, NOS Procedures: H Pylori (initial) PHYSICIAN & INSTITUTION [place] [id number] SPECIMEN INFORMATION: Tissue Source: A - Gastric body Clinical Info: GERD Specimen Number: [id number] CPT code: 17654 METHODOLOGY: Deparaffinized sections of prefer/formalin-fixed tissue or PAP/DQ stained slides are incubated with monoclonal/polyclonal antibodies/oligonucleotide probes. Localization is made via biotin free immunoperoxidase method. Appropriate controls are performed and reacted as expected. Results on target cell population are indicated in the following table: RESULTS: ANTIBODY / CLONE RESULT Block A H Pylori (polyclonal) negative These tests were developed and their performance characteristics determined by [facility]. They may not have been cleared or approved by the U.S. Food and Drug Administration. The FDA has determined that such clearance or approval is not necessary. The above immunohistochemical/dualISH markers are ordered and reviewed by the Pathologist. INTERPRETATION: A. Gastric body, biopsy: Negative for Helicobacter pylori organisms. SJ:evelia 04/20/2023
--- NOTE | 2023-04-19 09:45 | EGD_PTH ---
PATIENT: SARBJIT LAST LOC: [facility] U#:[id number] AGE/SX: 47/F ROOM: RE04/19/[address]: Dr. Jose Delvalle DO : 1975 BED: DIS: 04/19/2023 SPEC #: [id number] RECD: 04/19/23 11:34 STATUS: ANGEL JESSCIA #: [id number] JENNIFER: 04/19/23 09:[address]: Jose Delvalle DEPT: SURGICAL PATHOLOGY RECD BY: Josephine Starr ENTERED: 04/19/23 13:26 SP TYPE: EGD BIOPSY OT DR: KODAK Anderson Tissues: A - Gastric mucous membrane B - Esophagus, NOS C - Transverse colon D - Rectum, NOS Procedures: Special Stain Group II Surgery Specimen Level IV Alcian Blue/PAS (control) HEADER OPERATION: Colonoscopy, EGD (MAC), biopsy PRE-OP DIAGNOSIS: GERD TISSUE SUBMITTED: A - Gastric body biopsy, B - Distal esophagus biopsy, C - Transverse polyp biopsy, D - Rectum polyp biopsy MICROSCOPIC DIAGNOSIS A. Gastric body, biopsy: Minimal gastritis. See microscopic description and comment. B. Distal esophagus, biopsy: Fragments of gastroesophageal mucosa with chronic inflammation. Intestinal metaplasia (goblet cell metaplasia) not identified. See comment. C. Transverse colon polyp, biopsy: Tubular adenoma. D. Rectum polyp, biopsy: Hyperplastic polyp. SJ:evelia 04/20/2023 COMMENT A. The results of immunohistochemistry for Helicobacter pylori will be reported separately ([id number]). B. Alcian blue/PAS stain with matched control is used in the evaluation of the specimen. MICROSCOPIC DESCRIPTION Slides are reviewed. The specimen shows fragments of gastric mucosa with chronic inflammatory cell infiltrates in the lamina propria consisting of lymphocytes and plasma cells, consistent with minimal chronic gastritis. GROSS DESCRIPTION A - Received in fixative is one container labeled with the patient's name and designated gastric body. The specimen consists of two irregular fragments of light abbott soft tissue that in aggregate measure 1.0 x 0.5 x 0.1 cm. The specimen is totally submitted in one cassette. B - Received in fixative is one container labeled with the patient's name and designated distal esophagus. The specimen consists of multiple irregular fragments of light abbott soft tissue that in aggregate measure 0.6 x 0.5 x 0.1 cm. The specimen is totally submitted in one cassette. C - Received in fixative is one container labeled with the patient's name and designated transverse polyp. The specimen consists of one irregular fragment of light abbott soft tissue that measures 0.5 x 0.3 x 0.1 cm. The specimen is totally submitted in one cassette. D - Received in fixative is one container labeled with the patient's name and designated rectal polyp. The specimen consists of one irregular fragment of light abbott soft tissue that measures 0.3 x 0.3 x 0.1 cm. The specimen is totally submitted in one cassette. / AM:evelia 04/19/2023 TC:1 CPT: 78002 x4, 13246
--- NOTE | 2023-04-19 10:05 | PCM.HP.BLA ---
History and Physical Date of Admission: 04/19/23 SARBJIT LAST, is a 47 F who presents to the office today to establish with Gastroenterology to schedule EGD and colonosocpy. Long hx of acid reflux. Never fully controlled on PPI therapy. She recently switched to esomeprazole 40 mg daily, working better than lansoprazole was. Long hx of dysphagia, I choke on food. No nausea, vomiting, abdominal pain. Bowels are regular, no diarrhea or constipation, no melena or hematochezia. 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 Hx colon polyp about 10 yrs ago ROS Const Constitutional: Positive for fatigue and weakness ENT ENT: Positive for difficulty swallowing Gastro GI: Positive for abdominal pain, bloating, heartburn, difficulty swallowing, excessive flatus and nausea/dyspepsia; No belching, change in bowel habits, change in stool character, coffee ground emesis, constipation, cramping, diarrhea, feeling full early, incontinent of stools, Vomiting blood/hematemesis, Blood in stool, loose stools, Black,tarry stools, pain with swallowing, vomiting or other Musc Musculoskeletal: Positive for joint pain, back pain, muscle cramps, muscle weakness, stiffness and leg pain at night Skin Skin: No yellowing of the eye or itchy eyes Neuro Neurology: Positive for weakness Psych Psychiatric: No anxiety and Positive for depression Endo Endocrine: Positive for fatigue Aller/Imm Allergy/Immunologic: No itchy eyes Fredi/Lymp Hematologic/Lymphatic: No easy bleeding or easy bruising Exam Const General: cooperative and comfortable Nutritional Appearance: obese Orientation: alert, awake and oriented x3 Quality Reporting Tobacco Screening ([facility] 138) Smoking Status: Never smoker Assessment and Plan Assessment and Plan (1) GERD (gastroesophageal reflux disease): Status: Chronic Plan: 47 yr old female with chronic acid reflux, rx for esomeprazole 40 mg QAM (she is taking otc 20 mg x 2 daily). Was told she likely had Araujo's at [facility]. Will schedule EGD and colonoscopy to f/u hx colon polyp. Office visit 2 wks after endoscopies for discussion of results. (2) Hx of colonic polyp: Status: Acute Plan: see above Medications: New esomeprazole magnesium 40 mg PO QAM 90 caps 3RF Discontinued lansoprazole (Prevacid) Discontinued Reason: Order Changed 60 mg PO BID I have examined the patient and the H&P has been reviewed. There are no clinical changes since date of exam.
--- NOTE | 2023-04-19 10:57 | OP.EGD_ITS ---
Patient Name: Merlyn Llanos Procedure Date: 04/19/2023 10:08 AM Date of : 1975 Age: 47 Procedure: Upper GI endoscopy Indications: Functional Dyspepsia, Heartburn Providers: Jose Delvalle DO Referring MD: Laxmi Huitron Medicines: Monitored Anesthesia Care Patient Profile: This is a 47 year old female. Refer to note in patient chart for documentation of history and physical. Patient has symptoms of chronic dyspepsia and chronic heartburn. Complications: No immediate complications. Procedure: Pre-Anesthesia Assessment: - Prior to the procedure, a History and Physical was performed, and patient medications and allergies were reviewed. The risks and benefits of the procedure and the sedation options and risks were discussed with the patient. All questions were answered and informed consent was obtained. Patient identification and proposed procedure were verified by the physician in the pre-procedure area. Mental Status Examination: alert and oriented. Airway Examination: normal oropharyngeal airway and neck mobility. Respiratory Examination: clear to auscultation. CV Examination: normal. Prophylactic Antibiotics: The patient does not require prophylactic antibiotics. Prior Anticoagulants: The patient has taken no previous anticoagulant or antiplatelet agents. ASA Grade Assessment: II - A patient with mild systemic disease. After reviewing the risks and benefits, the patient was deemed in satisfactory condition to undergo the procedure. The anesthesia plan was to use monitored anesthesia care (MAC). Immediately prior to administration of medications, the patient was re-assessed for adequacy to receive sedatives. The heart rate, respiratory rate, oxygen saturations, blood pressure, adequacy of pulmonary ventilation, and response to care were monitored throughout the procedure. The physical status of the patient was re-assessed after the procedure. After obtaining informed consent, the endoscope was passed under direct vision. Throughout the procedure, the patient's blood pressure, pulse, and oxygen saturations were monitored continuously. The Colonoscope was introduced through the mouth, and advanced to the second part of duodenum. The upper GI endoscopy was accomplished without difficulty. The patient tolerated the procedure well. Scope In: 10:17:38 AM Scope Out: 10:24:25 AM Total Procedure Duration Time 0 hours 6 minutes 47 seconds Findings: The Z-line was irregular and was found 39 cm from the incisors. Biopsies were taken with a cold forceps for histology. Verification of patient identification for the specimen was done. Estimated blood loss was minimal. A few localized, 5 mm non-bleeding erosions were found in the gastric body. There were no stigmata of recent bleeding. Biopsies were taken with a cold forceps for histology. Verification of patient identification for the specimen was done. Estimated blood loss was minimal. The first portion of the duodenum was normal. Impression: - Z-line irregular, 39 cm from the incisors. Biopsied. - Non-bleeding erosive gastropathy. Biopsied. - Normal first portion of the duodenum. Recommendation: - Discharge patient to home. - Resume previous diet. - Continue present medications. - Await pathology results. Procedure Code(s): --- Professional --- 13122, Esophagogastroduodenoscopy, flexible, transoral; with biopsy, single or multiple CPT copyright 2017 [employer]. All rights reserved. The codes documented in this report are preliminary and upon studio assistant review may be revised to meet current compliance requirements. Jose Delvalle DO 04/19/2023 10:56:34 AM This report has been signed electronically. Number of Addenda: 0 Note Initiated On: 04/19/2023 10:08 AM
--- NOTE | 2023-04-19 10:57 | OP.CCLET_ITS ---
04/19/2023 Laxmi Huitron Re : Upper GI endoscopy procedure for Merlyn Rice Tomy This procedure was performed on Wednesday, April 19, 2023. My impressions and recommendations are as follows: Impressions : - Z-line irregular, 39 cm from the incisors. Biopsied. - Non-bleeding erosive gastropathy. Biopsied. - Normal first portion of the duodenum. Recommendations : - Discharge patient to home. - Resume previous diet. - Continue present medications. - Await pathology results. My findings are described in the full procedure note, which is enclosed. If I can be of further assistance, please feel free to contact me at . Sincerely, Jose Delvalle, 04/19/2023 10:56:34 AM This report has been signed electronically.
--- NOTE | 2023-04-19 11:00 | OP.CCLET_ITS ---
04/19/2023 Laxmi Huitron Re : Colonoscopy procedure for Merlyn Nunezvicente Huitron This procedure was performed on Wednesday, April 19, 2023. My impressions and recommendations are as follows: Impressions : - Diverticulosis in the recto-sigmoid colon and in the sigmoid colon. - Two 1 to 2 mm polyps in the rectum and in the transverse colon, removed with a cold snare. Resected and retrieved. Recommendations : - Repeat colonoscopy in 5 years for surveillance. - Continue present medications. My findings are described in the full procedure note, which is enclosed. If I can be of further assistance, please feel free to contact me at . Sincerely, Jose Delvalle, 04/19/2023 11:00:06 AM This report has been signed electronically.
--- NOTE | 2023-04-19 11:00 | OP.COLON_ITS ---
Patient Name: Merlyn Llanos Procedure Date: 04/19/2023 10:25 AM Date of : 1975 Age: 47 Procedure: Colonoscopy Indications: Screening for colorectal malignant neoplasm Providers: Jose Delvalle DO Referring MD: Laxmi Huitron Medicines: Monitored Anesthesia Care Patient Profile: This is a 47 year old female. Refer to note in patient chart for documentation of history and physical. Patient has symptoms of chronic dyspepsia and chronic heartburn. Last Colonoscopy: 5 years ago. Complications: No immediate complications. Procedure: Pre-Anesthesia Assessment: - Prior to the procedure, a History and Physical was performed, and patient medications and allergies were reviewed. The risks and benefits of the procedure and the sedation options and risks were discussed with the patient. All questions were answered and informed consent was obtained. Patient identification and proposed procedure were verified by the physician in the pre-procedure area. Mental Status Examination: alert and oriented. Airway Examination: normal oropharyngeal airway and neck mobility. Respiratory Examination: clear to auscultation. CV Examination: normal. Prophylactic Antibiotics: The patient does not require prophylactic antibiotics. Prior Anticoagulants: The patient has taken no previous anticoagulant or antiplatelet agents. ASA Grade Assessment: II - A patient with mild systemic disease. After reviewing the risks and benefits, the patient was deemed in satisfactory condition to undergo the procedure. The anesthesia plan was to use monitored anesthesia care (MAC). Immediately prior to administration of medications, the patient was re-assessed for adequacy to receive sedatives. The heart rate, respiratory rate, oxygen saturations, blood pressure, adequacy of pulmonary ventilation, and response to care were monitored throughout the procedure. The physical status of the patient was re-assessed after the procedure. After I obtained informed consent, the scope was passed under direct vision. Throughout the procedure, the patient's blood pressure, pulse, and oxygen saturations were monitored continuously. The Colonoscope was introduced through the anus and advanced to the cecum, identified by appendiceal orifice and ileocecal valve. The colonoscopy was performed without difficulty. The patient tolerated the procedure well. The quality of the bowel preparation was adequate. Scope In: 10:26:33 AM Scope Withdrawal Time 0 hours 12 minutes 23 seconds Scope Out: 10:44:53 AM Total Procedure Duration Time 0 hours 18 minutes 20 seconds Findings: The perianal and digital rectal examinations were normal. A few small-mouthed diverticula were found in the recto-sigmoid colon and sigmoid colon. Two sessile polyps were found in the rectum and transverse colon. The polyps were 1 to 2 mm in size. These polyps were removed with a cold snare. Resection and retrieval were complete. Verification of patient identification for the specimen was done. Estimated blood loss was minimal. Impression: - Diverticulosis in the recto-sigmoid colon and in the sigmoid colon. - Two 1 to 2 mm polyps in the rectum and in the transverse colon, removed with a cold snare. Resected and retrieved. Recommendation: - Repeat colonoscopy in 5 years for surveillance. - Continue present medications. Procedure Code(s): --- Professional --- 15112, Colonoscopy, flexible; with removal of tumor(s), polyp(s), or other lesion(s) by snare technique CPT copyright 2017 [employer]. All rights reserved. The codes documented in this report are preliminary and upon barrow worker review may be revised to meet current compliance requirements. Jose Delvalle DO 04/19/2023 11:00:06 AM This report has been signed electronically. Number of Addenda: 0 Note Initiated On: 04/19/2023 10:25 AM
== END 2023-04-19 11:38 | disposition home or self-care (01) ==
LOC: EN 08:21 → AC 08:22
PROVIDERS: PCP Physician Assistant; Referring Provider Physician Assistant; Visit Provider Internal Medicine Gastroenterology
PROC: 0DJD8ZZ Inspection of Lower Intestinal Tract, Via Natural or Artificial Opening Endoscopic (ICD-10-PCS; CPT 45378; principal; 2023-04-19 09:40)
DX: Z12.11 Encounter for screening for malignant neoplasm of colon (principal); K21.9 Gastro-esophageal reflux disease without esophagitis; K62.1 Rectal polyp; Z90.49 Acquired absence of other specified parts of digestive tract; K57.30 Diverticulosis of large intestine without perforation or abscess without bleeding; Z86.010 Personal history of colon polyps; R13.10 Dysphagia, unspecified; R53.83 Other fatigue
CPT/HCPCS: 43239; 45385; 82962; 88305; 88313; 88342; J7120; J2405

== ENCOUNTER → 2023-06-26 | Outpatient (CLI) | payer OTHER, SELFPAY ==
[2023-06-26 13:09] LABS: Absolute Lymphocyte Count 2.14 X10^3/uL (0.83-4.51); Absolute Neutrophil Count 5.3 X10^3/uL (2.0-7.7); Basophil# 0.07 X10^3/uL; Basophil% 0.8 % (0-1); Eosinophil# 0.15 X10^3/uL; Eosinophils% 1.8 % (0-5); Hematocrit 41.3 % (37-47); Hemoglobin 12.9 g/dL (12.0-15.0); Lymphocyte # 2.14 X10^3/ul (0.83-4.51); Lymphocyte % 25.3 % (19-41); Mean Corp Hgb Conc 31.2 g/dL (32-36); Mean Corpuscular Hgb 27.6 pg (27.0-32.0); Mean Corpuscular Volume 88.4 fL (81-99); Mean Platelet Vol. 9.6 fl (6.2-12.0); Monocyte# 0.69 X10^3/uL; Monocyte% 8.2 % (0-10); NRBC Flagged by Analyzer 0 % (0-5); Neutrophil # 5.34 X10^3/uL (2.7-7.7); Neutrophil % 63.2 % (47-70); Platelet Count 298 K/mm3 (150-450); RBC Distribution Width SD 42.2 fl (35.1-43.9); Red Blood Count 4.67 M/mm3 (4.2-5.4); White Blood Count 8.5 K/mm3 (4.4-11.0)
[2023-06-26 13:52] LABS: Cholesterol 175 mg/dL (200); High Density Lipoprotein 58 mg/dL; Triglycerides 145 mg/dL; Very Low Density Lipoprotein 29 mg/dL (5-40)
== END | disposition home or self-care (01) ==
PROVIDERS: Internal Medicine Pulmonary Disease; PCP Physician Assistant; Referring Provider Physician Assistant; Visit Provider Physician Assistant
DX: E78.5 Hyperlipidemia, unspecified (principal); J45.40 Moderate persistent asthma, uncomplicated
CPT/HCPCS: 36415; 80061; 85025

== ENCOUNTER → 2023-07-07 | Day surgery (SDC) | payer OTHER, SELFPAY ==
[2023-07-07 08:27] VITALS: BP 143/89; PULSE 74; RESP 14; TEMP 36.6; O2SAT 97
[2023-07-07] MEDS: Lidocaine Jelly 2% 20 ML Syringe (URO-JET) 1 APPLIC (08:44)
== END | disposition home or self-care (01) ==
PROVIDERS: PCP Physician Assistant; Referring Provider Internal Medicine Gastroenterology; Visit Provider Internal Medicine Gastroenterology
PROC: F00ZJWZ Instrumental Swallowing and Oral Function Assessment using Swallowing Equipment (ICD-10-PCS; CPT 43235; principal; 2023-07-07 08:25)
DX: R13.10 Dysphagia, unspecified (principal)
CPT/HCPCS: 91010

== ENCOUNTER → 2023-08-04 | Outpatient (CLI) | payer OTHER, SELFPAY ==
--- NOTE | 2023-08-04 11:49 | NM_ITS ---
CLINICAL: 48-year-old diabetic female with history of Araujo''s esophagus, hiatal hernia and clinically delayed gastric emptying. SEMI-SOLID PHASE 99m Tc SULFUR COLLOID GASTRIC EMPTYING STUDY COMPARISON: None available FINDINGS: The patient was administered 1.1 mCi of 99m Tc sulfur colloid mixed with oatmeal and consumed per os. Image acquisitions in the anterior -posterior projections were obtained for 60 minutes. There is prompt visualization of the stomach. There is no gastroesophageal reflux identified. The T ? raw data emptying was calculated to be 49.63 minutes, (Normal: 12-56 minutes). NM/Gastric Emptying Study IMPRESSION: 1. NORMAL 99m Tc sulfur colloid semi-solid phase (oatmeal) gastric emptying imaging examination. A. There is normal and preserved semi-solid phase gastric emptying compared to normal controls. (Sarah et al, J Nucl Med Tech 38: 186, 2010). Electronically Signed: Shaun Bojorquez DO at 9:31 EST ,
== END | disposition home or self-care (01) ==
LOC: NM 11:48
PROVIDERS: PCP Physician Assistant; Referring Provider Internal Medicine Gastroenterology; Visit Provider Internal Medicine Gastroenterology
DX: K29.60 Other gastritis without bleeding (principal)
CPT/HCPCS: 78264; A9541

== ENCOUNTER → 2023-09-12 | Outpatient (CLI) | payer OTHER, SELFPAY ==
--- NOTE | 2023-09-12 15:45 | RAD_ITS ---
EXAM: XR CHEST, 2 VIEWS CLINICAL INDICATION: ASTHMA EXACERBATION TECHNIQUE: Frontal and lateral views of the chest. COMPARISON: 11/14/2022 FINDINGS: LUNGS AND PLEURAL SPACES: Borderline hyperinflation suggestive of COPD/asthma. No pneumothorax. No effusion. No definite focal airspace disease. HEART: No significant abnormality. Cardiac silhouette not enlarged. MEDIASTINUM: Central airways and mediastinal contour are unremarkable. BONES/JOINTS: No significant abnormality. No acute fracture. SOFT TISSUES: No significant abnormality. RAD/Chest PA and Lateral IMPRESSION: 1. No definite focal airspace disease. 2. Borderline hyperinflation suggestive of COPD/asthma. Electronically Signed: Sai Gotti DO at 16:08 EST ,
== END | disposition home or self-care (01) ==
LOC: RAD.FUTURE 15:38 → RAD 15:46
PROVIDERS: PCP Physician Assistant; Referring Provider Physician Assistant; Visit Provider Physician Assistant
DX: J45.901 Unspecified asthma with (acute) exacerbation (principal)
CPT/HCPCS: 71046

== ENCOUNTER → 2024-08-23 | Outpatient (CLI) | payer OTHER, SELFPAY ==
--- NOTE | 2024-08-23 14:03 | BI_ITS ---
MAMMOGRAPHY - BILATERAL SCREENING REASON FOR EXAM: Female, 49 years old. Routine annual screening examination. PERTINENT HISTORY: Aunt with breast cancer. TECHNIQUE: Digital bilateral breast gonzalo (3D mammographic acquisition) in the CC and MLO projections. 2-D mediolateral oblique (MLO) and craniocaudad (CC) views of both breasts were obtained. CAD: Full Field Digital Mammography with Computer Added Detection was performed. COMPARISON: Comparison is made with prior study dated November 22, 2022. FINDINGS: Breast Composition: There are scattered areas of fibroglandular density. There are no dominant masses or suspicious calcifications. Stable small benign-appearing bilateral axillary lymph nodes. No other significant abnormalities are identified. There has been no significant change since the prior study. BI/SCRN MAMM (CAD)W/GONZALO BILAT IMPRESSION: Stable bilateral screening mammogram. Yearly follow-up mammogram recommended. (A) ASSESSMENT CATEGORY: BIRADS Category 2: Benign. A letter regarding these results will be sent to the patient by the facility within 30 days. Approximately 10% of breast cancers are not detected by mammography. A normal mammogram should not delay biopsy of a clinically suspicious abnormality. [id number] Electronically Signed: Be Lozano MD at 14:33 EST ,
== END | disposition home or self-care (01) ==
PROVIDERS: PCP Physician Assistant; Referring Provider Physician Assistant; Visit Provider Physician Assistant
DX: Z12.31 Encounter for screening mammogram for malignant neoplasm of breast (principal); Z80.3 Family history of malignant neoplasm of breast
CPT/HCPCS: 77063; 77067